=== PATIENT | female | born 1985 | race Caucasian/White ===

== ENCOUNTER 2023-05-17 18:16 | Emergency (ER) | payer MEDICAID, OTHER ==
[2023-05-17] MEDS ORDERED: Sulfamethoxazole/Trimethoprim 800-160 MG Tab PO ONE (18:17)
[2023-05-17] MEDS ORDERED: Sodium Chloride 0.9% 10 ML Syringe FLUSH PRN (18:32)
[2023-05-17] MEDS ORDERED: Sodium Chloride 0.9% 1,000 ML IV ONE (19:01)
[2023-05-17 19:07] LABS: BASOPHILS PERCENT AUTO 0.3 % (0.2-1.5); EOSINOPHILS ABSOLUTE AUTO 0.1 x10-3/uL (0.0-0.8); EOSINOPHILS PERCENT AUTO 1.2 % (0.6-8.1); HEMATOCRIT 33.6 % (34.2-48.2); HEMOGLOBIN 10.4 g/dL (11.4-15.5); LYMPHOCYTES ABSOLUTE AUTO 1.4 x10-3/uL (1.0-4.4); LYMPHOCYTES PERCENT AUTO 16.5 % (18.4-52.1); MEAN PLATELET VOLUME 10.6 fL (7.1-12.4); MONOCYTES ABSOLUTE AUTO 0.7 x10-3/uL (0.3-1.0); MONOCYTES PERCENT AUTO 7.9 % (4.4-15.7); NEUTROPHILS ABSOLUTE AUTO 6.1 x10-3/uL (1.5-6.3); NEUTROPHILS PERCENT AUTO 74.1 % (30.8-76.2); PLATELET COUNT,PLT 243 x10(3)uL (151-488); RED BLOOD CELL COUNT 3.86 x10(6)uL (3.60-5.20); RED CELL DISTRIBUTION WIDTH 14.9 % (12.3-16.5); WHITE BLOOD CELL COUNT,WBC 8.3 x10-3/uL (3.0-10.3)
[2023-05-17 19:13] LABS: BLOOD UREA NITROGEN,BUN 9 mg/dL (7-18); BUN/CREATININE RATIO 11.3 (9-20); CALCIUM 8.4 mg/dL (8.6-10.2); CARBON DIOXIDE,CO2 29 mmol/L (21-32); CHLORIDE,CL 105 mmol/L (100-110); CREATININE 0.8 mg/dL (0.55-1.02); EST CRCL DRUG DOSING (CG) 87.51 mL/min; ESTIMATED GFR 95 mL/min (>60); GLUCOSE RANDOM 101 mg/dL (80-116); SODIUM,NA 138 mmol/L (135-145)
[2023-05-17 19:14] LABS: BILIRUBIN,URINE NEGATIVE (NEGATIVE); GLUCOSE,URINE NORMAL (NORMAL); KETONES,URINE 15 mg/dL (NEGATIVE); LEUKOCYTE ESTERASE,URINE NEGATIVE (NEGATIVE); NITRITE,URINE POSITIVE (NEGATIVE); OCCULT BLOOD,URINE MODERATE (NEGATIVE); PROTEIN,URINE NEGATIVE (NEGATIVE); UROBILINOGEN,URINE 1 mg/dL (NEGATIVE)
[2023-05-17] MEDS ORDERED: Iopamidol 755 Mg/ML 100 ML Bottle IV SCH (19:15)
[2023-05-17 19:20] LABS: A/G RATIO 0.8; ALANINE AMINOTRANSFERASE,ALT 28 U/L (12-36); ALBUMIN 3.4 g/dL (3.5-5.2); ALKALINE PHOSPHATASE 155 IU/L (56-112); AMYLASE 97 U/L (25-115); ASPARTATE AMNIOTRANSFERASE,AST 20 IU/L (5-25); BILIRUBIN TOTAL 0.3 mg/dL (0.1-1.3); PROTEIN TOTAL,TP 7.7 g/dL (6.0-8.0)
[2023-05-17 19:25] LABS: APPEARANCE,URINE SLIGHTLY CLOUDY (CLEAR); BACTERIA,URINE MANY (NS); COLOR,URINE YELLOW (YELLOW); RBC,URINE 0-5 (0-5); SQUAMOUS EPITHELIAL CELLS,UR OCCASIONAL (NS,R,O)
[2023-05-17 20:26] VITALS: BP 103/54; PULSE 60
== END 2023-05-17 20:34 | disposition home or self-care (01) ==
LOC: FB.ED 18:16
DX: N39.0 Urinary tract infection, site not specified (principal); E66.9 Obesity, unspecified; Z68.33 Body mass index [BMI] 33.0-33.9, adult
CPT/HCPCS: 74177; 80053; 81001; 82150; 83690; 85025; 87086; 87088; 87186; 96360; 99283; 99284-25; A9270-GY; J7030; Q9967

== ENCOUNTER 2023-07-19 18:13 | Emergency (ER) | payer OTHER, BC ==
[2023-07-19 19:13] VITALS: BP 121/63; PULSE 106
[2023-07-19] MEDS ORDERED: Acetaminophen 500 MG Tab PO ONE (19:15)
[2023-07-19] MEDS ORDERED: Ibuprofen 800 MG Tab PO ONE (19:15)
[2023-07-19 20:06] LABS: INFLUENZA A NAA NEGATIVE (NEGATIVE); INFLUENZA B NAA NEGATIVE (NEGATIVE)
[2023-07-19 20:12] LABS: CORONAVIRUS COVID-19 NAA NEGATIVE (NEGATIVE)
== END 2023-07-19 20:30 | disposition home or self-care (01) ==
LOC: FB.ED 18:13
DX: B34.9 Viral infection, unspecified (principal); E66.9 Obesity, unspecified; Z20.822 Contact with and (suspected) exposure to COVID-19; Z86.16 Personal history of COVID-19; Z87.891 Personal history of nicotine dependence
CPT/HCPCS: 0240U; 71045; 99283; A9270-GY

== ENCOUNTER 2024-09-12 12:56 | Emergency (ER) | payer BC, OTHER ==
[2024-09-12 13:30] VITALS: BP 103/69; PULSE 67
[2024-09-12 13:31] LABS: BASOPHILS PERCENT AUTO 0.4 % (0.2-1.5); EOSINOPHILS ABSOLUTE AUTO 0.1 x10-3/uL (0.0-0.8); HEMATOCRIT 30.3 % (34.2-48.2); LYMPHOCYTES ABSOLUTE AUTO 1.6 x10-3/uL (1.0-4.4); LYMPHOCYTES PERCENT AUTO 23.8 % (18.4-52.1); MEAN CORPUSCULAR HEMOGLOBIN 29.3 pg (23.9-33.9); MEAN CORPUSCULAR HGB CONC 32.9 g/dL (31.9-34.8); MEAN PLATELET VOLUME 10.7 fL (7.1-12.4); MONOCYTES ABSOLUTE AUTO 0.4 x10-3/uL (0.3-1.0); MONOCYTES PERCENT AUTO 6.6 % (4.4-15.7); NEUTROPHILS ABSOLUTE AUTO 4.6 x10-3/uL (1.5-6.3); NEUTROPHILS PERCENT AUTO 68.2 % (30.8-76.2); PLATELET COUNT,PLT 195 x10(3)uL (151-488); RED BLOOD CELL COUNT 3.41 x10(6)uL (3.60-5.20); RED CELL DISTRIBUTION WIDTH 14.8 % (12.3-16.5); WHITE BLOOD CELL COUNT,WBC 6.7 x10-3/uL (3.0-10.3)
[2024-09-12 13:37] LABS: BLOOD UREA NITROGEN,BUN 13 mg/dL (7-18); BUN/CREATININE RATIO 14.4 (9-20); CALCIUM 8.3 mg/dL (8.6-10.2); CARBON DIOXIDE,CO2 28 mmol/L (21-32); CHLORIDE,CL 105 mmol/L (100-110); CREATININE 0.9 mg/dL (0.55-1.02); ESTIMATED GFR 82 mL/min (>60); GLUCOSE RANDOM 91 mg/dL (80-116); POTASSIUM,K 4.1 mmol/L (3.5-5.3); SODIUM,NA 139 mmol/L (135-145)
[2024-09-12 13:42] LABS: A/G RATIO 0.8; ALANINE AMINOTRANSFERASE,ALT 20 U/L (12-36); ALKALINE PHOSPHATASE 119 IU/L (56-112); ASPARTATE AMNIOTRANSFERASE,AST 21 IU/L (5-25); BILIRUBIN TOTAL 0.2 mg/dL (0.1-1.3); PROTEIN TOTAL,TP 6.6 g/dL (6.0-8.0)
[2024-09-12 13:43] LABS: D-DIMER QUANTITATIVE 0.94 mg/LFEU (0.0-0.59)
[2024-09-12 13:47] LABS: PTT,PARTIAL THROMBOPLSTIN TIME 25.5 SECONDS (24.4-33.2)
[2024-09-12 13:49] LABS: TROPONIN I 8.3 pg/mL (4.0-60.3)
[2024-09-12 13:56] LABS: INR 0.97 (1.00-1.24); PROTHROMBIN TIME 10.1 sec (9.0-11.1)
[2024-09-12] MEDS: Iopamidol 755 Mg/ML 100 ML Bottle IV SCH (14:27)
== END 2024-09-12 16:00 ==
LOC: FB.ED 12:56
DX: I48.91 Unspecified atrial fibrillation (principal); I47.20 Ventricular tachycardia, unspecified; J45.909 Unspecified asthma, uncomplicated; E66.9 Obesity, unspecified; Z86.16 Personal history of COVID-19; Z98.84 Bariatric surgery status
CPT/HCPCS: 36415; 71275; 80053; 83735; 83880; 84484; 85025; 85379; 85610; 85730; 99285; Q9967

== ENCOUNTER 2024-12-03 14:16 | Emergency (ER) | payer BC ==
[2024-12-03 14:38] VITALS: BP 128/90; PULSE 75
== END 2024-12-03 14:50 | disposition home or self-care (01) ==
LOC: FB.ED 14:16
DX: S46.912A Strain of unspecified muscle, fascia and tendon at shoulder and upper arm level, left arm, initial encounter (principal); E66.9 Obesity, unspecified; Z86.16 Personal history of COVID-19; Z68.31 Body mass index [BMI] 31.0-31.9, adult; X50.0XXA Overexertion from strenuous movement or load, initial encounter
CPT/HCPCS: 99283